=== PATIENT | male | born 2000 | race Caucasian/White ===

== ENCOUNTER 2020-10-06 14:38 | Emergency (ER) | payer OTHER, SELFPAY ==
--- NOTE | 2020-10-06 16:14 | ED_ITS ---
HPI - General Adult General Chief complaint: General Medical Stated complaint: genital problem, covid symptom Time Seen by Provider: 10/06/20 15:45 Source: patient Mode of arrival: ambulatory Limitations: no limitations History of Present Illness HPI narrative: Pt comes to the ER c/o intermittent L testicular pain for 3 days. Pt went to [facility] today, he was sent over to the ER for further eval. At this time, pt c/o L testicular discomfort. Pt states that when the pain is present, feels like someone kicked him in the teste complaint: testicular pain Related Data Allergies Allergy/AdvReac Type Severity Reaction Status Date / Time No Known Allergies Allergy Verified 10/06/20 16:20 Review of Systems Constitutional: Constitutional: Reports no additional constitutional complaints Eyes: Eyes: Reports no additional eye complaints ENT: Reports system reviewed and no additional complaints, except as documented Cardiovascular: Cardiovascular: Reports no additional cardiovascular complaints Respiratory: Respiratory: Reports no additional respiratory complaints Gastrointestinal: Gastrointestinal: Reports no additional gastrointestinal complaints Genitourinary: Genitourinary: Denies hematospermia, Denies hematuria, Denies difficulty urinating and Reports testicular pain Musculoskeletal: Musculoskeletal: Reports no additional musculoskeletal complaints Integumentary/Breasts: Skin/Breast: Denies bleeding lesions Neurologic: Denies Neuro-related abnormal movements Psychiatric: Psychiatric: Reports no additional psychiatric complaints Endocrine: Endocrine: Reports no additional endocrine complaints Hematologic/Lymphatic: Hematologic/Lymphatic: Reports no additional hematologic/lymphatic complaints Allergic/Immunologic: Allergic/Immunologic: Reports no additional allergic/immunologic complaints PMFSH Social History Social History Advance Directives: No Advance Directives Information Provided: No Physical Exam Vital Signs: Vital Signs: Last Vital Signs Temp 97.6 F 10/06/20 16:17 Pulse 97 10/06/20 16:17 Resp 18 10/06/20 16:17 BP 141/92 H 10/06/20 16:17 Pulse Ox 99 10/06/20 16:17 Body Mass Index 32.3 Const: General: cooperative, healthy appearing and comfortable HENMT: Head: Yes normal to inspection Eyes: General: appearance normal, both eyes and all related structures Neck: Neck: Yes normal visual inspection Chest: Chest palpation & inspection: normal inspection of the chest Resp: Effort & Inspection: normal respiratory effort and no respiratory distress Cardio: Jugular venous distension: no JVD Rate: regular rate Rhythm: regular rhythm Heart sounds: S1 normal heart sound present and S2 normal heart sound present GI: Inspection: Yes normal to inspection, No abdominal wall ecchymosis, No Abdominal wall edema and No distended : Penis: normal penis Scrotum: scrotum normal Testes: Testes normal and other (mild discomfort to palpation on the L teste) Course Course Course Narrative: I discussed the ultrasound with the patient, no evidence of testicular torsion. At this time, patient reports no pain. Patient's pain likely from musculoskeletal source, likely a a ligamentous strain Medical Decision Making Lab Data Labs: Lab Results 10/06/20 10/06/20 Range/Units 17:32 17:36 Urine Color YELLOW Urine Appearance CLEAR Urine pH 6.5 (5.0-8.0) Ur Specific Sophia 1.010 (1.005-1.025) Urine Protein NEG (NEG-TRACE) MG/DL Urine Glucose (UA) NEG (NEG) MG/DL Urine Ketones NEG (NEG) MG/DL Urine Blood NEG (NEG) Urine Nitrite NEG (NEG) Ur Leukocyte Esterase NEG (NEG) C.trachomatis RNA (TMA) Cancelled Chlamydia/GC Comment Cancelled N.gonorrhoeae RNA (TMA) Cancelled Imaging Data Testicular ultrasound: Radiologist's impression: RIGHT: Right testicle measures 4.8 x 2.2 x 3.5 cm, volume 19.3 mL. No focal testicular parenchymal lesions are visualized. Spectral Doppler analysis of the arterial and venous flow is normal in the right testis. Right epididymal head is normal in size. Trace right hydrocele. Prominent right paratesticular veins although they do not meet criteria for a varicocele. Right epididymal Doppler flow is normal. LEFT: Left testicle measures 4.5 x 2.5 x 3.2 cm, volume 19.4 mL. Tiny 1 to 2 mm anechoic cyst in the left testicle. Otherwise, no focal testicular parenchymal lesions are visualized. Spectral Doppler analysis of the arterial and venous flow is normal in the left testis. Left epididymal head is normal in size. Trace left hydrocele. Prominent left paratesticular veins are present although they do not meet criteria for a varicocele. Left epididymal Doppler flow is normal. US/US scrotum IMPRESSION: Normal arterial and venous spectral Doppler waveforms identified within the testicles bilaterally. No evidence of active ovarian (correction: testicular) torsion at the time of the scan. No intratesticular mass seen. Trace bilateral hydroceles. There are prominent paratesticular veins bilaterally, although they do not meet criteria for a varicocele. Discharge Plan Discharge Clinical Impression: Left testicular pain Patient Disposition: Home, Self-Care Instructions: Testicle Pain (ED) Additional Instructions: Please follow-up with your primary care physician tomorrow. If you have any worsening or new symptoms, please return to the emergency room or call 911
[2020-10-06 16:17] VITALS: BP 141/92; PULSE 97; RESP 18; TEMP 36.4; O2SAT 99; BMI 32.3
--- NOTE | 2020-10-06 16:20 | US_ITS ---
EXAMINATION: US SCROTUM CLINICAL INFORMATION: Intermittent left testicular pain. COMPARISON: None TECHNIQUE: A sonogram of the scrotum was performed assessing cooper-scale appearance and color Doppler flow. Spectral Doppler analysis of the arterial and venous flow were performed in the testes bilaterally. FINDINGS: RIGHT: Right testicle measures 4.8 x 2.2 x 3.5 cm, volume 19.3 mL. No focal testicular parenchymal lesions are visualized. Spectral Doppler analysis of the arterial and venous flow is normal in the right testis. Right epididymal head is normal in size. Trace right hydrocele. Prominent right paratesticular veins although they do not meet criteria for a varicocele. Right epididymal Doppler flow is normal. LEFT: Left testicle measures 4.5 x 2.5 x 3.2 cm, volume 19.4 mL. Tiny 1 to 2 mm anechoic cyst in the left testicle. Otherwise, no focal testicular parenchymal lesions are visualized. Spectral Doppler analysis of the arterial and venous flow is normal in the left testis. Left epididymal head is normal in size. Trace left hydrocele. Prominent left paratesticular veins are present although they do not meet criteria for a varicocele. Left epididymal Doppler flow is normal. US/US scrotum IMPRESSION: Normal arterial and venous spectral Doppler waveforms identified within the testicles bilaterally. No evidence of active ovarian torsion at the time of the scan. No intratesticular mass seen. Trace bilateral hydroceles. There are prominent paratesticular veins bilaterally, although they do not meet criteria for a varicocele.
[2020-10-06 17:44] LABS: Glucose Urine UA NEG (NEG); Leukocyte Esterase Urine NEG (NEG); Nitrite Urine NEG (NEG); PH 6.5 (5.0-8.0); Urine Blood NEG (NEG); Urine Ketones NEG (NEG); Urine Protein NEG (NEG-TRACE)
[2020-10-06 17:48] LABS: Appearance Urine CLEAR; Color Urine YELLOW
== END 2020-10-06 18:16 | disposition home or self-care (01) ==
PROVIDERS: Emergency Provider Emergency Medicine
DX: N50.812 Left testicular pain (principal)
CPT/HCPCS: 76870; 81003; 99283; 99284